=== PATIENT | male | born 1990 | race American Indian/Alaskan Native ===

== ENCOUNTER 2022-05-13 20:29 | Emergency (ER) | payer SELFPAY ==
[2022-05-13 21:02] VITALS: BP 154/87
== END 2022-05-14 00:01 | disposition left against medical advice (07) ==
LOC: ED 20:29
DX: S60.922A Unspecified superficial injury of left hand, initial encounter (principal); Z53.21 Procedure and treatment not carried out due to patient leaving prior to being seen by health care provider; X58.XXXA Exposure to other specified factors, initial encounter; Y93.89 Activity, other specified; Y92.89 Other specified places as the place of occurrence of the external cause; Y99.8 Other external cause status